=== PATIENT | female | born 1940 | race Asian ===

== ENCOUNTER → 2018-05-28 | Outpatient (CLI) | payer OTHER ==
[~2018-05-28] MED LIST: AMIO200 PO; CALC-1038 PO; VICOT PO
== END | disposition home or self-care (01) ==
LOC: RADPV 08:00
PROVIDERS: ATTEND Hospitalist
DX: I12.9 Hypertensive chronic kidney disease with stage 1 through stage 4 chronic kidney disease, or unspecified chronic kidney disease (principal); N18.3 Chronic kidney disease, stage 3 (moderate)
CPT/HCPCS: 76770

== ENCOUNTER 2019-06-19 05:36 | Inpatient (IN) | payer OTHER ==
[~2019-06-19] VITALS: Ht 149.9 cm; Wt 52.3 kg
[2019-06-19] MEDS ORDERED: DABI75CA3 PO (05:50)
[2019-06-19 07:08] LABS: APPEARANCE,URINE CLEAR (CLEAR); BILIRUBIN,URINE NEGATIVE (NEGATIVE); GLUCOSE, URINE (UA) NEGATIVE (NEGATIVE); KETONES,URINE NEGATIVE (NEGATIVE); LEUKOCYTE ESTERASE ,URINE NEGATIVE (NEGATIVE); NITRATE,URINE NEGATIVE (NEGATIVE); OCCULT BLOOD,URINE SMALL (NEGATIVE); PROTEIN,URINE POS 1+ (NEGATIVE); UROBILINOGEN,URINE 0.2 mg/dL (<=1.0)
[2019-06-19 07:15] LABS: CALCIUM, TOTAL 9.1 mg/dL (8.8-10.5); CREATININE 1.05 mg/dL (0.60-1.30); INR 1.1 (0.9-1.1); POTASSIUM 4.2 mmol/L (3.5-5.1); PROTHROMBIN TIME 10.8 SEC (9.4-11.6)
[2019-06-19 07:26] LABS: BACTERIA,URINE None Seen /HPF (None Seen); SQUAMOUS EPITHELIAL CELL,UR Moderate /LPF (None Seen); WBC,URINE None Seen /HPF (0-5)
[2019-06-19 07:29] LABS: ALBUMIN 3.3 g/dL (3.4-5.0); BILIRUBIN,TOTAL 0.4 mg/dL (0.1-1.0); FREE T4 (FREE THYROXINE) 1.17 ng/dL (0.76-1.46); THYROID STIMULATING HORMONE 4.43 uIU/mL (0.36-3.74); TOTAL PROTEIN, SERUM 7.5 g/dL (6.4-8.2)
[2019-06-19 07:32] LABS: BASOPHILS % (AUTO) 0.8 % (0.0-2.0); EOSINOPHILS % (AUTO) 2.5 % (1.0-6.0); HEMATOCRIT 46.2 % (36-46); HEMOGLOBIN 15.6 g/dL (12.0-16.0); LYMPHOCYTES % (AUTO) 19.8 % (22.0-44.0); MEAN CORPUSCULAR HEMOGLOBIN 30.2 pg (26.0-34.0); MEAN CORPUSCULAR HGB CONC 33.9 G/dL (31.0-37.0); MEAN CORPUSCULAR VOLUME 89 fL (80-100); MONOCYTES # (AUTO) 0.6 K/uL (0.1-1.0); MONOCYTES % (AUTO) 6.3 % (2.0-9.0); NEUTROPHILS # (AUTO) 6.9 K/uL (1.8-7.7); NEUTROPHILS % (AUTO) 70.6 % (40.0-70.0); PLATELET COUNT (AUTO) 305 K/uL (150-450); RED BLOOD CELL COUNT(AUTO) 5.19 MIL/uL (4.00-5.20); RED CELL DISTRIBUTION WIDTH 12.7 % (11.5-14.5)
[2019-06-19] MEDS ORDERED: ACETAMINOPHEN 325 MG TABLET PO PRN ×2 (08:15→09:30)
[2019-06-19] MEDS ORDERED: 0.9% SODIUM CHLORIDE 10 ML SYRINGE IVP PRN ×2 (08:15→09:30)
[2019-06-19] MEDS ORDERED: ASPIRIN 81 MG CHEWABLE TABLET PO ONE (08:15)
[2019-06-19] MEDS ORDERED: ALBUTEROL SULFATE 2.5 MG/0.5 ML NEB SOLUTION NEB PRN (09:30)
[2019-06-19] MEDS ORDERED: IPRATROPIUM BROMIDE 0.5 MG/2.5 ML NEB SOLUTION NEB PRN (09:30)
[2019-06-19] MEDS ORDERED: BISACODYL 10 MG RECTAL RECTAL SUPPOSITORY PR PRN (09:30)
[2019-06-19] MEDS ORDERED: MAGNESIUM HYDROXIDE SUSPENSION 30 ML UDCUP PO PRN (09:30)
[2019-06-19] MEDS ORDERED: ONDANSETRON HCL 4 MG/2 ML VIAL IVP PRN (09:30)
[2019-06-19] MEDS ORDERED: DOCUSATE SODIUM 100 MG CAPSULE PO PRN (09:30)
[2019-06-19] MEDS: PANTOPRAZOLE SODIUM 40 MG DR TABLET PO SCH (10:32)
[2019-06-19 11:34] VITALS: BP 131/63
[2019-06-19] MEDS ORDERED: AMIO200T67 PO (13:32)
[2019-06-19] MEDS: METOPROLOL TARTRATE 25 MG TABLET PO SCH (14:50)
[2019-06-19 15:50] VITALS: BP 119/82
[2019-06-19] MEDS: CALCIUM OYSTER SHELL 500 MG TABLET PO SCH ×2 (17:12→21:48)
[2019-06-19 17:31] VITALS: BP 128/72
[2019-06-19 20:34] VITALS: BP 96/60
[2019-06-19] MEDS: ATORVASTATIN CALCIUM 10 MG TABLET PO SCH (20:56)
[2019-06-19] MEDS: RANOLAZINE 500 MG ER TABLET PO SCH (20:56)
[2019-06-19] MEDS: DABIGATRAN ETEXILATE MESYLATE 75 MG CAPSULE PO SCH (20:56)
[2019-06-19 23:31] VITALS: BP 113/65
[2019-06-20] VITALS (8 sets, daily range): BP systolic 92–120; BP diastolic 58–68
[2019-06-20] MEDS: LEVOTHYROXINE SODIUM 75 MCG TABLET PO SCH (06:00)
[2019-06-20] MEDS: CALCIUM OYSTER SHELL 500 MG TABLET PO SCH ×2 (08:14→20:31)
[2019-06-20] MEDS: RANOLAZINE 500 MG ER TABLET PO SCH ×2 (08:14→20:30)
[2019-06-20] MEDS: PANTOPRAZOLE SODIUM 40 MG DR TABLET PO SCH (08:15)
[2019-06-20] MEDS: DABIGATRAN ETEXILATE MESYLATE 75 MG CAPSULE PO SCH ×2 (08:16→20:30)
[2019-06-20] MEDS: METOPROLOL TARTRATE 25 MG TABLET PO SCH (08:16)
[2019-06-20 08:26] LABS: BASOPHILS % (AUTO) 0.7 % (0.0-2.0); EOSINOPHILS % (AUTO) 5.3 % (1.0-6.0); HEMATOCRIT 45.2 % (36-46); HEMOGLOBIN 15.4 g/dL (12.0-16.0); LYMPHOCYTES # (AUTO) 2.5 K/uL (1.0-4.8); LYMPHOCYTES % (AUTO) 28.4 % (22.0-44.0); MEAN CORPUSCULAR HEMOGLOBIN 30.3 pg (26.0-34.0); MEAN CORPUSCULAR VOLUME 89 fL (80-100); MONOCYTES # (AUTO) 0.6 K/uL (0.1-1.0); MONOCYTES % (AUTO) 6.4 % (2.0-9.0); NEUTROPHILS # (AUTO) 5.1 K/uL (1.8-7.7); NEUTROPHILS % (AUTO) 59.2 % (40.0-70.0); PLATELET COUNT (AUTO) 348 K/uL (150-450); RED BLOOD CELL COUNT(AUTO) 5.08 MIL/uL (4.00-5.20); RED CELL DISTRIBUTION WIDTH 12.5 % (11.5-14.5)
[2019-06-20 08:42] LABS: CREATININE 0.97 mg/dL (0.60-1.30); POTASSIUM 4.1 mmol/L (3.5-5.1)
[2019-06-20 08:43] LABS: CALCIUM, TOTAL 8.7 mg/dL (8.8-10.5); CHOL/HDL RATIO 2.8 (3.9-5.7)
[2019-06-20] MEDS: ATORVASTATIN CALCIUM 10 MG TABLET PO SCH (20:30)
[2019-06-21 05:05] VITALS: BP 102/66
[2019-06-21] MEDS: LEVOTHYROXINE SODIUM 75 MCG TABLET PO SCH (06:08)
[2019-06-21] MEDS: METOPROLOL TARTRATE 25 MG TABLET PO SCH ×2 (09:00→16:09)
[2019-06-21] MEDS: PANTOPRAZOLE SODIUM 40 MG DR TABLET PO SCH (09:33)
[2019-06-21] MEDS: RANOLAZINE 500 MG ER TABLET PO SCH ×2 (09:33→20:03)
[2019-06-21] MEDS: DABIGATRAN ETEXILATE MESYLATE 75 MG CAPSULE PO SCH ×2 (09:34→20:03)
[2019-06-21] MEDS: CALCIUM OYSTER SHELL 500 MG TABLET PO SCH ×2 (09:34→20:03)
[2019-06-21 09:35] VITALS: BP 100/62
[2019-06-21 11:59] VITALS: BP 100/64
[2019-06-21 16:04] VITALS: BP 144/99
[2019-06-21 19:47] VITALS: BP 127/70
[2019-06-21] MEDS: ATORVASTATIN CALCIUM 10 MG TABLET PO SCH (20:03)
[2019-06-22 00:01] VITALS: BP 120/68
[2019-06-22 04:15] VITALS: BP 110/61
[2019-06-22] MEDS: LEVOTHYROXINE SODIUM 75 MCG TABLET PO SCH (05:54)
[2019-06-22 06:58] LABS: BASOPHILS % (AUTO) 0.7 % (0.0-2.0); EOSINOPHILS % (AUTO) 7.2 % (1.0-6.0); HEMATOCRIT 43.5 % (36-46); HEMOGLOBIN 14.8 g/dL (12.0-16.0); LYMPHOCYTES # (AUTO) 2.5 K/uL (1.0-4.8); LYMPHOCYTES % (AUTO) 26.6 % (22.0-44.0); MEAN CORPUSCULAR HEMOGLOBIN 30.3 pg (26.0-34.0); MEAN CORPUSCULAR VOLUME 89 fL (80-100); MONOCYTES # (AUTO) 0.8 K/uL (0.1-1.0); MONOCYTES % (AUTO) 8.4 % (2.0-9.0); NEUTROPHILS # (AUTO) 5.3 K/uL (1.8-7.7); NEUTROPHILS % (AUTO) 57.1 % (40.0-70.0); PLATELET COUNT (AUTO) 353 K/uL (150-450); RED BLOOD CELL COUNT(AUTO) 4.88 MIL/uL (4.00-5.20); RED CELL DISTRIBUTION WIDTH 12.6 % (11.5-14.5)
[2019-06-22 07:46] LABS: CALCIUM, TOTAL 9.3 mg/dL (8.8-10.5); CREATININE 1.04 mg/dL (0.60-1.30); POTASSIUM 4.1 mmol/L (3.5-5.1)
[2019-06-22] MEDS: CALCIUM OYSTER SHELL 500 MG TABLET PO SCH (07:49)
[2019-06-22] MEDS: DABIGATRAN ETEXILATE MESYLATE 75 MG CAPSULE PO SCH (07:49)
[2019-06-22] MEDS: METOPROLOL TARTRATE 25 MG TABLET PO SCH (07:50)
[2019-06-22] MEDS: RANOLAZINE 500 MG ER TABLET PO SCH (07:50)
[2019-06-22] MEDS: PANTOPRAZOLE SODIUM 40 MG DR TABLET PO SCH (07:51)
[2019-06-22 07:55] VITALS: BP 109/62
[2019-06-22 11:32] VITALS: BP 94/58
[2019-06-22] MEDS ORDERED: ATOR10TA84 PO (14:23)
[2019-06-22] MEDS ORDERED: OS500 PO (14:23)
[2019-06-22] MEDS ORDERED: RANO500T3 PO (14:24)
[2019-06-22] MEDS ORDERED: METO25 PO (14:24)
[2019-06-22] MEDS ORDERED: LEVO75 PO (14:24)
[2019-06-22 15:45] VITALS: BP 103/69
== END 2019-06-22 16:20 | disposition home or self-care (01) | DRG 201 ==
LOC: EMS 05:39 → 5S 08:56
PROVIDERS: ADMIT Internal Medicine; ATTEND Internal Medicine
DX: I48.0 Paroxysmal atrial fibrillation (principal); I49.5 Sick sinus syndrome; E78.5 Hyperlipidemia, unspecified; I87.2 Venous insufficiency (chronic) (peripheral); F41.9 Anxiety disorder, unspecified; I47.1 Supraventricular tachycardia; Z95.0 Presence of cardiac pacemaker; Z79.01 Long term (current) use of anticoagulants
CPT/HCPCS: 84439; 84443; 93005; 93306; 97162

== ENCOUNTER 2023-09-02 06:57 | Day surgery (SDC) | payer OTHER ==
[~2023-09-02] VITALS: Ht 149.9 cm; Wt 57.3 kg
[~2023-09-02 06:57] MED LIST changes: -AMIO200 PO; +ATOR10TA PO; +DABI75CA4 PO; +LEVO75 PO; +METO25 PO; +OS500 PO; +RANO500T27 PO; -VICOT PO
[2023-09-02] MEDS ORDERED: SODIUM CHLORIDE 0.9% 0 ML ONE (07:40)
[2023-09-02] MEDS ORDERED: ISON100L PO (08:20)
[2023-09-02] MEDS ORDERED: FAMO20 PO (08:20)
[2023-09-02] MEDS ORDERED: CHOL200059 PO (08:20)
[2023-09-02] MEDS ORDERED: PYRI50TA11 PO (08:20)
[2023-09-02] MEDS ORDERED: BECL10.6 IH (08:21)
[2023-09-02] MEDS: SODIUM CHLORIDE 0.9% 1,000 ML IV ONE (08:27)
[2023-09-02] MEDS ORDERED: MIDAZOLAM HCL 2 MG/2 ML VIAL ONE (08:48)
[2023-09-02] MEDS ORDERED: FentaNYL CITRATE PF 100 MCG/2 ML VIAL ONE (08:48)
[2023-09-02 09:41] VITALS: PULSE 96; RESP 18; O2SAT 100
[2023-09-02] MEDS ORDERED: MethylPREDNISolone SOD SUCC 125 MG/2 ML VIAL ONE (10:50)
[2023-09-02] MEDS: MethylPREDNISolone SOD SUCC 125 MG/2 ML VIAL IVP ONE (10:54)
[2023-09-02] MEDS ORDERED: EPINEPHrine 1:10,000 [1 MG/10 ML] SYRINGE ONE (11:05)
[2023-09-02] MEDS: PROMETHAZINE HCL/CODEINE 6.25-10MG/5ML SOLUTION UDCUP PO PRN (11:08)
[2023-09-02] MEDS ORDERED: LIDOCAINE 4% 50 ML SOLUTION ONE (12:00)
[2023-09-02] MEDS ORDERED: EPINEPHrine 1:1,000 [1 MG/ML] VIAL ONE (12:00)
[2023-09-02] MEDS ORDERED: LEVALBUTEROL 1.25 MG/0.5 ML NEB SOLUTION NEB ONE (12:00)
[2023-09-02] MEDS ORDERED: LIDOCAINE 2% 11 ML JELLY ONE (12:00)
[2023-09-02] MEDS ORDERED: BENZOCAINE 20% 50 MCG/SPRAY 57 GM ONE (12:00)
[2023-09-02] MEDS: PHYTONADIONE 10 MG/ML VIAL PO ONE (13:05)
== END 2023-09-02 13:25 | disposition home or self-care (01) ==
LOC: SURGERY 06:57
PROVIDERS: ATTEND Internal Medicine Critical Care Medicine
DX: R05.3 Chronic cough (principal); R91.8 Other nonspecific abnormal finding of lung field; J81.1 Chronic pulmonary edema; J38.4 Edema of larynx; B37.0 Candidal stomatitis; R06.2 Wheezing; R04.2 Hemoptysis; J98.09 Other diseases of bronchus, not elsewhere classified; J84.10 Pulmonary fibrosis, unspecified; J98.8 Other specified respiratory disorders; Z85.21 Personal history of malignant neoplasm of larynx
CPT/HCPCS: 94640; 87206; 87101; 87220; 87070; 88108; 93005; 31623; 31624; 71045; 87015; J0171 ×2; J3010; J2250; J2919; J3430; Q9967; J7030; Z7610

== ENCOUNTER 2024-03-16 06:41 | Day surgery (SDC) | payer OTHER ==
[~2024-03-16] VITALS: Ht 149.9 cm; Wt 50.9 kg
[~2024-03-16 06:41] MED LIST changes: +BECL10.6 IH; +CHOL200059 PO; +FAMO20 PO; +PYRI50TA11 PO; +[UNRECOGNIZED DRUG - CODE] PO
[2024-03-16] MEDS ORDERED: LEVALBUTEROL 1.25 MG/0.5 ML NEB SOLUTION NEB ONE (06:42)
[2024-03-16] MEDS ORDERED: BENZOCAINE 20% 50 MCG/SPRAY 57 GM TP ONE (06:42)
[2024-03-16] MEDS ORDERED: LIDOCAINE 2% 11 ML JELLY TP ONE (06:42)
[2024-03-16] MEDS ORDERED: LIDOCAINE 4% 50 ML SOLUTION TP ONE (06:42)
[2024-03-16] MEDS ORDERED: ALBUTEROL SULFATE 2.5 MG/0.5 ML NEB SOLUTION NEB ONE (06:42)
[2024-03-16] MEDS ORDERED: LEVO88TA4 PO (07:29)
[2024-03-16] MEDS ORDERED: FLUT12AE3 IH (07:29)
[2024-03-16] MEDS ORDERED: CEFU250T87 PO (07:35)
[2024-03-16] MEDS ORDERED: ALEN70TA65 PO (07:35)
[2024-03-16] MEDS ORDERED: DOXY75CA5 PO (07:35)
[2024-03-16] MEDS ORDERED: METO25XL PO (07:35)
[2024-03-16] MEDS ORDERED: MONT-35 PO (07:35)
[2024-03-16] MEDS ORDERED: FentaNYL CITRATE PF 100 MCG/2 ML VIAL ONE (08:30)
[2024-03-16] MEDS ORDERED: MIDAZOLAM HCL 2 MG/2 ML VIAL ONE (08:30)
[2024-03-16] MEDS: SODIUM CHLORIDE 0.9% 1,000 ML IV ONE (08:36)
[2024-03-16 09:29] VITALS: PULSE 103; RESP 16; O2SAT 100
[2024-03-16] MEDS: FentaNYL CITRATE PF 100 MCG/2 ML VIAL IVP ONE (09:30)
[2024-03-16] MEDS: MIDAZOLAM HCL 2 MG/2 ML VIAL IVP ONE (09:30)
[2024-03-16] MEDS ORDERED: MethylPREDNISolone SOD SUCC 125 MG/2 ML VIAL ONE (10:11)
[2024-03-16] MEDS: PHYTONADIONE 10 MG/ML VIAL PO ONE (10:38)
[2024-03-16] MEDS: MethylPREDNISolone SOD SUCC 125 MG/2 ML VIAL IVP ONE (10:38)
== END 2024-03-16 11:50 | disposition home or self-care (01) ==
LOC: SURGERY 06:41
PROVIDERS: ATTEND Internal Medicine Critical Care Medicine
DX: R05.3 Chronic cough (principal); R06.2 Wheezing; R49.0 Dysphonia; R04.2 Hemoptysis; R91.8 Other nonspecific abnormal finding of lung field; J38.4 Edema of larynx; B37.0 Candidal stomatitis; I10 Essential (primary) hypertension; E11.9 Type 2 diabetes mellitus without complications; Z79.890 Hormone replacement therapy; Z79.899 Other long term (current) drug therapy; Z95.0 Presence of cardiac pacemaker
CPT/HCPCS: 31623; 87206; 87101; 87220; 87070; 88108; 87186; 31624; 94640; 71045; 87015; 93005; J3010; J2250; J2919; J3430; J7613; Z7610

== ENCOUNTER 2025-05-01 01:17 | Inpatient (IN) | payer MEDICARE, OTHER ==
[~2025-05-01] VITALS: Ht 147.3 cm; Wt 48.5 kg
[2025-05-01] VITALS (13 sets, daily range): BP systolic 91–111; BP diastolic 44–52; PULSE 95–214; RESP 20–36; TEMP 93.5–96.3; O2SAT 0–98
[~2025-05-01 01:17] MED LIST changes: +ALEN70TA65 PO; +CEFU250T87 PO; +DOXY75CA5 PO; +FLUT12AE3 IH; +LEVO88TA4 PO; +METO25XL PO; +MONT-35 PO
[2025-05-01] MEDS: ETOMIDATE 2 MG/ML 10 ML VIAL IVP ONE (01:49)
[2025-05-01 02:10] LABS: PLATELET COUNT (AUTO) 301 K/uL (150-450); RED BLOOD CELL COUNT(AUTO) 4.93 MIL/uL (4.00-5.20); RED CELL DISTRIBUTION WIDTH 12.9 % (11.5-14.5)
[2025-05-01 02:30] LABS: ASPARTATE AMINOTRANSFERASE 23.0 U/L (15-37); TOTAL PROTEIN, SERUM 7.6 g/dL (6.4-8.2)
[2025-05-01 02:38] LABS: CALCIUM, TOTAL 8.9 mg/dL (8.8-10.5); CREATININE 1.74 mg/dL (0.60-1.30); GLOMERULAR FILTR. RATE CALC 28 mL/min (>60); GLUCOSE,RANDOM 112 mg/dL (70-110); SODIUM SERUM 132 mmol/L (136-145); TROPONIN I-HIGH SENSITIVITY 35 ng/L (<51); UREA NITROGEN, BLOOD 20 mg/dL (7-18)
[2025-05-01 02:40] LABS: LACTIC ACID 5.8 mmol/L (0.4-2.0); WHITE BLOOD COUNT (AUTO) 69.4 K/uL (4.5-11.0)
[2025-05-01 02:58] LABS: BAND NEUTROPHILS % (MANUAL) 18 % (0-5); LYMPHOCYTES % (MANUAL) 2 % (22-44); MONOCYTES % (MANUAL) 3 % (2-9); RBC MORPHOLOGY COMMENT NORMAL RBC MORPH; SEGMENTED NEUTROPHILS % 77 % (40-70)
[2025-05-01] MEDS: AMIODARONE HCL 150 MG in DEXTROSE 5%-WATER 97 ML IV ONE (03:43)
[2025-05-01 03:50] LABS: ABG BASE EXCESS -17.1 mmol/L (-2.0-3.0); ABG CARBOXYHEMOGLOBIN 0.9 % (0.5-1.5); ABG HCO3 13.5 mmol/L (21.0-28.0); ABG METHEMOGLOBIN 0.7 % (0.0-1.5); ABG OXYGEN CONTENT 18.8 mL/dL (15.0-23.0); ABG OXYGEN SATURATION 85.7 % (94.0-98.0); ABG OXYHEMOGLOBIN 84.3 % (94.0-98.0); ABG PH 7.314 (7.350-7.450); ABG TOTAL HEMOGLOBIN 15.9 G/dL (12.0-16.0); FRACTIONATED INSPIRED OXYGEN 100.0 % (21-100.0); SOURCE, BLOOD GAS ARTERIAL; TEMPERATURE, FAHRENHEIT, BG 97.4 FAHREN (96.0-98.6)
[2025-05-01 03:54] LABS: ABG PCO2 18 mmHg (32.0-45.0); PO2, ARTERIAL BG 52.4 mmHg (83.0-108.0)
[2025-05-01 03:55] LABS: ABG A-A DIFF O2 644.0 mmHg (10-20.0); FLOW, BLOOD GAS 15.00 L/min (0.00-15.00); O2 DEVICE,BLOOD GAS NON REBREATHER (ROOM AIR); SITE, BLOOD GAS RT FEMORAL
[2025-05-01 03:56] LABS: PATIENT RATE, BG 36.0 min.
[2025-05-01] MEDS: MAGNESIUM SULFATE 1 GM in DEXTROSE 5%-WATER 50 ML IV ONE (04:03)
[2025-05-01] MEDS: AMIODARONE HCL 360 MG in DEXTROSE 5%-WATER 242.8 ML IV ONE (04:14)
[2025-05-01] MEDS: CefTRIAXone 1 GM/DEXTROSE 50 ML IV ONE (05:41)
[2025-05-01 05:54] LABS: ABG BASE EXCESS -19.2 mmol/L (-2.0-3.0); ABG CARBOXYHEMOGLOBIN 0.8 % (0.5-1.5); ABG HCO3 12.0 mmol/L (21.0-28.0); ABG METHEMOGLOBIN 0.8 % (0.0-1.5); ABG OXYGEN CONTENT 18.2 mL/dL (15.0-23.0); ABG OXYGEN SATURATION 86.1 % (94.0-98.0); ABG OXYHEMOGLOBIN 84.7 % (94.0-98.0); ABG PH 7.254 (7.350-7.450); ABG TOTAL HEMOGLOBIN 15.3 G/dL (12.0-16.0); FRACTIONATED INSPIRED OXYGEN 91.0 % (21-100.0); PO2, ARTERIAL BG 55.1 mmHg (83.0-108.0); SOURCE, BLOOD GAS ARTERIAL; TEMPERATURE, FAHRENHEIT, BG 97.2 FAHREN (96.0-98.6)
[2025-05-01 05:56] LABS: ABG PCO2 19 mmHg (32.0-45.0)
[2025-05-01 05:57] LABS: ABG A-A DIFF O2 576.5 mmHg (10-20.0); ALLEN TEST, BLOOD GAS Positive; O2 DEVICE,BLOOD GAS HI FL CANNULA (ROOM AIR); SITE, BLOOD GAS RT FEMORAL
[2025-05-01 05:58] LABS: FLOW, BLOOD GAS 55.00 L/min (0.00-15.00); PATIENT RATE, BG 30.0 min.
[2025-05-01] MEDS: SODIUM BICARBONATE [ADULT] 8.4% 50 MEQ/50 ML SYRINGE IVP ONE (06:09)
[2025-05-01] MEDS: KETAMINE HCL 50 MG/ML 10 ML VIAL IVP ONE (06:10)
[2025-05-01] MEDS: ROCURONIUM BROMIDE 10 MG/ML 5 ML VIAL IVP ONE (06:11)
[2025-05-01] MEDS ORDERED: EPINEPHrine 1:10,000 [1 MG/10 ML] SYRINGE ONE (06:14)
[2025-05-01] MEDS: VASOPRESSIN 40 UNITS in DEXTROSE 5%-WATER 98 ML IV PRN ×2 (06:28→07:55)
[2025-05-01] MEDS ORDERED: 0.9% SODIUM CHLORIDE 10 ML SYRINGE IVP PRN (06:30)
[2025-05-01] MEDS: *CLINICAL-CEFEPIME DOSING CLINICAL ONE (06:40)
[2025-05-01] MEDS: ALBUMIN HUMAN 5%-12.5GM/250ML 250 ML IV ONE (07:07)
[2025-05-01 07:08] LABS: PLATELET COUNT (AUTO) 284 K/uL (150-450); RED BLOOD CELL COUNT(AUTO) 4.44 MIL/uL (4.00-5.20); RED CELL DISTRIBUTION WIDTH 13.2 % (11.5-14.5)
[2025-05-01 07:17] LABS: WHITE BLOOD COUNT (AUTO) 66.2 K/uL (4.5-11.0)
[2025-05-01 07:18] LABS: CALCIUM, TOTAL 8.0 mg/dL (8.8-10.5); CREATININE 2.09 mg/dL (0.60-1.30); GLOMERULAR FILTR. RATE CALC 23.0 mL/min (>60); GLUCOSE,RANDOM 322.0 mg/dL (70-110); SODIUM SERUM 133.0 mmol/L (136-145); UREA NITROGEN, BLOOD 22.0 mg/dL (7-18)
[2025-05-01 07:23] LABS: ASPARTATE AMINOTRANSFERASE 88.0 U/L (15-37); LACTATE DEHYDROGENASE 361.0 U/L (81-234); TOTAL PROTEIN, SERUM 6.3 g/dL (6.4-8.2)
[2025-05-01] MEDS ORDERED: PROPOFOL 1000 MG/ISO-OSM 100 ML IV PRN (07:30)
[2025-05-01] MEDS: EPINEPHrine 1:10,000 [1 MG/10 ML] SYRINGE IVP ONE (07:40)
[2025-05-01] MEDS: SODIUM CHLORIDE 0.9% 250 ML IV ONE (07:46)
[2025-05-01] MEDS: FentaNYL CIT 1000MCG/0.9% NACL 100 ML IV PRN (08:01)
[2025-05-01 08:43] LABS: COVID AG,FIA SOURCE NASAL SWAB
[2025-05-01] MEDS: SODIUM BICARBONATE 100 MEQ in DEXTROSE 5%-0.45% SODIUM CHL 1,000 ML IV SCH (08:52)
[2025-05-01 09:14] LABS: SARS-COV2 (COVID) ANTIGEN,FIA Negative (Negative)
[2025-05-01 09:15] LABS: INFLUENZA TYPE A NEGATIVE FOR TYPE A (NEGATIVE); INFLUENZA TYPE B NEGATIVE FOR TYPE B (NEGATIVE)
[2025-05-01 09:15] LABS: BAND NEUTROPHILS % (MANUAL) 20 % (0-5); LYMPHOCYTES % (MANUAL) 3 % (22-44); MONOCYTES % (MANUAL) 6 % (2-9); SEGMENTED NEUTROPHILS % 71 % (40-70)
[2025-05-01] MEDS ORDERED: DEXTROSE 50%-WATER 25 GM/50 ML SYRINGE IVP PRN (09:30)
[2025-05-01 10:16] LABS: RAPID GROUP A STREP PRELIM. NEGATIVE (NEGATIVE)
[2025-05-01] MEDS: VANCOMYCIN 750 MG/WATER(PEG) 150 ML IV ONE (10:31)
[2025-05-01] MEDS: AMIODARONE HCL 540 MG in DEXTROSE 5%-WATER 250 ML IV ONE (10:32)
[2025-05-01] MEDS: SODIUM CHLORIDE 0.9% 1,000 ML IV ONE ×2 (10:45→11:00)
[2025-05-01] MEDS ORDERED: SODIUM CHLORIDE 0.9% 500 ML IV ONE (13:37)
[2025-05-01] MEDS ORDERED: CEFEPIME HCL 0.5 GM in DEXTROSE 5%-WATER 50 ML IV SCH (14:00)
[2025-05-01] MEDS ORDERED: SODIUM CHLORIDE 0.9% 250 ML IV ONE ×2 (14:09→17:52)
[2025-05-01 15:04] LABS: ABG CARBOXYHEMOGLOBIN 0.2 % (0.5-1.5); FRACTIONATED INSPIRED OXYGEN 100.0 % (21-100.0); SOURCE, BLOOD GAS ARTERIAL
[2025-05-01 15:14] LABS: CALCIUM, TOTAL 6.6 mg/dL (8.8-10.5); CREATININE 1.75 mg/dL (0.60-1.30); GLOMERULAR FILTR. RATE CALC 28.0 mL/min (>60); GLUCOSE,RANDOM 336.0 mg/dL (70-110); SODIUM SERUM 135.0 mmol/L (136-145); UREA NITROGEN, BLOOD 23.0 mg/dL (7-18)
[2025-05-01 15:17] LABS: ABG BASE EXCESS -14.0 mmol/L (-2.0-3.0); ABG HCO3 13.6 mmol/L (21.0-28.0); ABG METHEMOGLOBIN 0.1 % (0.0-1.5); ABG OXYGEN CONTENT 15.7 mL/dL (15.0-23.0); ABG OXYHEMOGLOBIN 84.4 % (94.0-98.0); ABG PCO2 45 mmHg (32.0-45.0); ABG TOTAL HEMOGLOBIN 13.2 G/dL (12.0-16.0); TEMPERATURE, FAHRENHEIT, BG 92.1 FAHREN (96.0-98.6)
[2025-05-01 15:18] LABS: ABG OXYGEN SATURATION 84.7 % (94.0-98.0); ABG PH 7.141 (7.350-7.450); PO2, ARTERIAL BG 50.1 mmHg (83.0-108.0)
[2025-05-01 15:19] LABS: ABG A-A DIFF O2 626.5 mmHg (10-20.0); O2 DEVICE,BLOOD GAS VENTILATOR (ROOM AIR); PEEP,BG 5 cm H2O; SET RATE, BG 20.0 min.; SITE, BLOOD GAS ARTERIAL LINE; VT, ABG 300 ml
[2025-05-01] MEDS: EPINEPHrine 5 MG in DEXTROSE 5%-WATER 245 ML IV PRN (15:19)
[2025-05-01] MEDS: DOPamine 400MG/D5W[STANDARD] 250 ML IV PRN (15:30)
[2025-05-01] MEDS: CEFEPIME HCL 1 GM in DEXTROSE 5%-WATER 50 ML IV SCH (16:16)
[2025-05-01] MEDS: RINGERS SOLUTION,LACTATED 500 ML IV ONE ×2 (16:17→16:19)
[2025-05-01] MEDS: ALBUMIN HUMAN 25%-25GM/100ML 100 ML IV SCH (16:18)
[2025-05-01 16:33] LABS: ABG BASE EXCESS -12.3 mmol/L (-2.0-3.0); ABG CARBOXYHEMOGLOBIN 0.1 % (0.5-1.5); ABG HCO3 15.0 mmol/L (21.0-28.0); ABG METHEMOGLOBIN 0.3 % (0.0-1.5); ABG OXYGEN CONTENT 16.4 mL/dL (15.0-23.0); ABG OXYGEN SATURATION 92.0 % (94.0-98.0); ABG OXYHEMOGLOBIN 91.6 % (94.0-98.0); ABG PCO2 47 mmHg (32.0-45.0); ABG TOTAL HEMOGLOBIN 12.7 G/dL (12.0-16.0); FRACTIONATED INSPIRED OXYGEN 100.0 % (21-100.0); PO2, ARTERIAL BG 75.0 mmHg (83.0-108.0); SOURCE, BLOOD GAS ARTERIAL; TEMPERATURE, FAHRENHEIT, BG 98.0 FAHREN (96.0-98.6)
[2025-05-01 16:34] LABS: ABG A-A DIFF O2 592.2 mmHg (10-20.0); ABG PH 7.162 (7.350-7.450); O2 DEVICE,BLOOD GAS VENTILATOR (ROOM AIR); PEEP,BG 10 cm H2O; SET RATE, BG 26.0 min.; SITE, BLOOD GAS ARTERIAL LINE; VT, ABG 300 ml
[2025-05-01] MEDS: POTASSIUM CHL 10 MEQ/WATER 50 ML IV ONE ×2 (17:42→19:44)
[2025-05-01] MEDS: DOXYCYCLINE HYCLATE 100 MG in DEXTROSE 5%-WATER 100 ML IV SCH (17:43)
[2025-05-01] MEDS: MetroNIDAZOLE 500 MG/NACL 100 ML IV SCH (17:54)
[2025-05-01] MEDS ORDERED: HEPARIN SODIUM,PORCINE 1,000 UNITS/ML VIAL IVCATH PRN ×2 (18:45)
[2025-05-01 18:56] LABS: GLUCOMETER DEV NAME(LOC) ICUN.7; GLUCOSE,POINT OF CARE 311 MG/DL (70-110)
[2025-05-01] MEDS: INSULIN LISPRO 100 UNITS/ML SQ PRN (18:56)
[2025-05-01 20:40] LABS: CALCIUM, TOTAL 6.3 mg/dL (8.8-10.5); CREATININE 1.58 mg/dL (0.60-1.30); GLOMERULAR FILTR. RATE CALC 31.0 mL/min (>60); SODIUM SERUM 131.0 mmol/L (136-145); UREA NITROGEN, BLOOD 21.0 mg/dL (7-18)
[2025-05-01 20:44] LABS: GLUCOSE,RANDOM 475.0 mg/dL (70-110)
[2025-05-01 20:49] LABS: PHOSPHORUS 3.5 mg/dL (2.5-4.9); TOTAL PROTEIN, SERUM 5.6 g/dL (6.4-8.2)
[2025-05-01 20:50] LABS: ASPARTATE AMINOTRANSFERASE 1670.0 U/L (15-37)
[2025-05-02] VITALS (13 sets, daily range): BP systolic 88–144; BP diastolic 40–51; PULSE 86–142; RESP 26–29; TEMP 97.4–100; O2SAT 0–76
[2025-05-02] MEDS: SODIUM CHLORIDE 0.9% 1,000 ML IV SCH (00:30)
[2025-05-02 01:31] LABS: GLUCOMETER DEV NAME(LOC) ICU.S7; GLUCOSE,POINT OF CARE 329 MG/DL (70-110)
[2025-05-02 03:43] LABS: ABG BASE EXCESS -15.9 mmol/L (-2.0-3.0); ABG CARBOXYHEMOGLOBIN 0.3 % (0.5-1.5); ABG HCO3 12.7 mmol/L (21.0-28.0); ABG METHEMOGLOBIN 0.3 % (0.0-1.5); ABG OXYGEN CONTENT 13.7 mL/dL (15.0-23.0); ABG OXYGEN SATURATION 87.9 % (94.0-98.0); ABG OXYHEMOGLOBIN 87.4 % (94.0-98.0); ABG PCO2 39 mmHg (32.0-45.0); ABG TOTAL HEMOGLOBIN 11.1 G/dL (12.0-16.0); FRACTIONATED INSPIRED OXYGEN 100.0 % (21-100.0); PO2, ARTERIAL BG 59.9 mmHg (83.0-108.0); TEMPERATURE, FAHRENHEIT, BG 97.1 FAHREN (96.0-98.6)
[2025-05-02 03:44] LABS: ABG PH 7.145 (7.350-7.450)
[2025-05-02 03:45] LABS: FLOW, BLOOD GAS 40.00 L/min (0.00-15.00); O2 DEVICE,BLOOD GAS VENTILATOR (ROOM AIR); SITE, BLOOD GAS RT RADIAL; SOURCE, BLOOD GAS ARTERIAL LINE
[2025-05-02 03:46] LABS: VENT MODE, BG PC (ROOM AIR)
[2025-05-02 03:48] LABS: PATIENT RATE, BG 26.0 min.; SET RATE, BG 347.0 min.; VT, ABG 347 ml
[2025-05-02 03:49] LABS: INSIPIRATORY PRESSURE, BG 18 cm H2O; PEEP,BG 5 cm H2O
[2025-05-02] MEDS: AMIODARONE HCL 750 MG in DEXTROSE 5%-WATER 485 ML IV SCH (04:49)
[2025-05-02] MEDS: SODIUM BICARBONATE [ADULT] 8.4% 50 MEQ/50 ML SYRINGE IVP ONE (04:49)
[2025-05-02 06:30] LABS: GLUCOMETER DEV NAME(LOC) ICUN.7; GLUCOSE,POINT OF CARE 492 MG/DL (70-110)
[2025-05-02] MEDS: LEVOTHYROXINE SODIUM 88 MCG TABLET GT SCH (06:31)
[2025-05-02 06:38] LABS: PLATELET COUNT (AUTO) 186 K/uL (150-450); RED BLOOD CELL COUNT(AUTO) 3.28 MIL/uL (4.00-5.20); RED CELL DISTRIBUTION WIDTH 13.4 % (11.5-14.5)
[2025-05-02 06:54] LABS: WHITE BLOOD COUNT (AUTO) 57.5 K/uL (4.5-11.0)
[2025-05-02 06:59] LABS: CREATININE 1.81 mg/dL (0.60-1.30); GLOMERULAR FILTR. RATE CALC 27.0 mL/min (>60); SODIUM SERUM 131.0 mmol/L (136-145); UREA NITROGEN, BLOOD 21.0 mg/dL (7-18)
[2025-05-02 07:01] LABS: CALCIUM, TOTAL 5.9 mg/dL (8.8-10.5); GLUCOSE,RANDOM 490.0 mg/dL (70-110)
[2025-05-02 07:11] LABS: APPEARANCE,URINE HAZY (CLEAR); GLUCOSE, URINE (UA) >=1000 mg/dL (NEGATIVE); LEUKOCYTE ESTERASE ,URINE NEGATIVE (NEGATIVE); NITRATE,URINE NEGATIVE (NEGATIVE); OCCULT BLOOD,URINE MODERATE (NEGATIVE); SPECIFIC GRAVITIY, URINE 1.022 (1.003-1.030)
[2025-05-02 07:16] LABS: TROPONIN I-HIGH SENSITIVITY 69 ng/L (<51)
[2025-05-02 07:29] LABS: SQUAMOUS EPITHELIAL CELL,UR Few /LPF (None Seen)
[2025-05-02] MEDS: PYRIDOXINE HCL 50 MG TABLET GT SCH (07:44)
[2025-05-02] MEDS: VANCOMYCIN 500 MG/WATER(PEG) 100 ML IV SCH (07:44)
[2025-05-02 08:03] LABS: BAND NEUTROPHILS % (MANUAL) 22 % (0-5); LYMPHOCYTES % (MANUAL) 3 % (22-44); MONOCYTES % (MANUAL) 6 % (2-9); SEGMENTED NEUTROPHILS % 69 % (40-70)
[2025-05-02 08:14] LABS: INFLUENZA A-RTPCR,COMBO NEGATIVE (NEGATIVE); INFLUENZA B-RTPCR,COMBO NEGATIVE (NEGATIVE); RESPIRATORY SYNCYTIAL VRS-PCR NEGATIVE (NEGATIVE); SARS COVID19 RTPCR, COMBO NEGATIVE (NEGATIVE)
[2025-05-02] MEDS: ISONIAZID 300 MG TABLET GT SCH (08:24)
[2025-05-02] MEDS: DEXTROSE 5%-WATER 1,000 ML IV SCH (09:30)
[2025-05-02] MEDS ORDERED: DEXTROSE 50%-WATER 25 GM/50 ML SYRINGE IVP PRN (09:30)
[2025-05-02 09:49] LABS: ABG BASE EXCESS -9.9 mmol/L (-2.0-3.0); ABG CARBOXYHEMOGLOBIN 0.1 % (0.5-1.5); ABG HCO3 16.3 mmol/L (21.0-28.0); ABG METHEMOGLOBIN 0.3 % (0.0-1.5); ABG OXYGEN CONTENT 12.0 mL/dL (15.0-23.0); ABG OXYHEMOGLOBIN 78.5 % (94.0-98.0); ABG PCO2 54 mmHg (32.0-45.0); ABG TOTAL HEMOGLOBIN 10.9 G/dL (12.0-16.0); FRACTIONATED INSPIRED OXYGEN 100.0 % (21-100.0); SOURCE, BLOOD GAS ARTERIAL; TEMPERATURE, FAHRENHEIT, BG 99.4 FAHREN (96.0-98.6)
[2025-05-02 09:50] LABS: ABG A-A DIFF O2 608.0 mmHg (10-20.0); ABG OXYGEN SATURATION 78.8 % (94.0-98.0); ABG PH 7.158 (7.350-7.450); O2 DEVICE,BLOOD GAS VENTILATOR (ROOM AIR); PO2, ARTERIAL BG 49.9 mmHg (83.0-108.0); SITE, BLOOD GAS ARTERIAL LINE; VENT MODE, BG Press. Control Vent (ROOM AIR); VT, ABG 324 ml
[2025-05-02 09:51] LABS: INSIPIRATORY PRESSURE, BG 18 cm H2O; PATIENT RATE, BG 26.0 min.; PEEP,BG 5 cm H2O; SET RATE, BG 26.0 min.; SPONTANEOUS VT, BG 324 ml
[2025-05-02] MEDS: CALCIUM GLUCONATE 100 MG/ML 10 ML IVP ONE (10:03)
[2025-05-02] MEDS: POTASSIUM CHL 10 MEQ/WATER 50 ML IV ONE (10:03)
[2025-05-02] MEDS: CEFEPIME HCL 1 GM in DEXTROSE 5%-WATER 50 ML IV SCH (10:36)
[2025-05-02] MEDS: INSULIN REGULAR, HUMAN 100 UNITS in SODIUM CHLORIDE 0.9% 99 ML IV PRN (10:39)
[2025-05-02 11:16] LABS: GLUCOMETER DEV NAME(LOC) ICUN.7; GLUCOSE,POINT OF CARE 334 MG/DL (70-110)
[2025-05-02 11:16] LABS: GLUCOMETER DEV NAME(LOC) ICUN.7; GLUCOSE,POINT OF CARE 381 MG/DL (70-110)
[2025-05-02 11:29] LABS: ABG BASE EXCESS -11.5 mmol/L (-2.0-3.0); ABG CARBOXYHEMOGLOBIN 0.3 % (0.5-1.5); ABG HCO3 15.3 mmol/L (21.0-28.0); ABG METHEMOGLOBIN 0.3 % (0.0-1.5); ABG OXYGEN CONTENT 12.7 mL/dL (15.0-23.0); ABG OXYGEN SATURATION 82.4 % (94.0-98.0); ABG OXYHEMOGLOBIN 81.9 % (94.0-98.0); ABG PCO2 50 mmHg (32.0-45.0); ABG PH 7.157 (7.350-7.450); ABG TOTAL HEMOGLOBIN 11.0 G/dL (12.0-16.0); FRACTIONATED INSPIRED OXYGEN 100.0 % (21-100.0); PO2, ARTERIAL BG 51.3 mmHg (83.0-108.0); SITE, BLOOD GAS ARTERIAL LINE; SOURCE, BLOOD GAS ARTERIAL; TEMPERATURE, FAHRENHEIT, BG 97.9 FAHREN (96.0-98.6)
[2025-05-02 11:30] LABS: ABG A-A DIFF O2 613.0 mmHg (10-20.0); INSIPIRATORY PRESSURE, BG 18 cm H2O; O2 DEVICE,BLOOD GAS VENTILATOR (ROOM AIR); PEEP,BG 8 cm H2O; SET RATE, BG 26.0 min.; SPONTANEOUS VT, BG 342 ml; VENT MODE, BG Press. Control Vent (ROOM AIR); VT, ABG 342 ml
[2025-05-02 12:20] LABS: GLUCOMETER DEV NAME(LOC) ICUN.7; GLUCOSE,POINT OF CARE 306 MG/DL (70-110)
[2025-05-02] MEDS: *CLINICAL-MEROPENEM DOSING CLINICAL ONE (13:11)
[2025-05-02] MEDS: MEROPENEM 500 MG in SODIUM CHLORIDE 0.9% 50 ML IV SCH (14:12)
[2025-05-02 14:16] LABS: GLUCOMETER DEV NAME(LOC) ICU.S7; GLUCOSE,POINT OF CARE 192 MG/DL (70-110)
[2025-05-02 14:16] LABS: GLUCOMETER DEV NAME(LOC) ICU.S7; GLUCOSE,POINT OF CARE 206 MG/DL (70-110)
[2025-05-02 16:20] LABS: GLUCOMETER DEV NAME(LOC) ICU.S7; GLUCOSE,POINT OF CARE 142 MG/DL (70-110)
[2025-05-02 17:31] LABS: GLUCOMETER DEV NAME(LOC) ICUN.7; GLUCOSE,POINT OF CARE 158 MG/DL (70-110)
[2025-05-02] MEDS ORDERED: SODIUM CHLORIDE 0.9% 250 ML IV ONE (20:03)
[2025-05-02 21:05] LABS: GLUCOMETER DEV NAME(LOC) ICUN.7; GLUCOSE,POINT OF CARE 94 MG/DL (70-110)
[2025-05-02 21:05] LABS: GLUCOMETER DEV NAME(LOC) ICUN.7; GLUCOSE,POINT OF CARE 115 MG/DL (70-110)
[2025-05-03] VITALS (10 sets, daily range): BP systolic 50–117; BP diastolic 35–46; PULSE 70–120; RESP 26–28; TEMP 95.8–98.4; O2SAT 49–79
[2025-05-03 00:01] LABS: GLUCOMETER DEV NAME(LOC) ICUN.7; GLUCOSE,POINT OF CARE 96 MG/DL (70-110)
[2025-05-03 04:01] LABS: GLUCOMETER DEV NAME(LOC) ICU.S7; GLUCOSE,POINT OF CARE 92 MG/DL (70-110)
[2025-05-03] MEDS: LEVOTHYROXINE SODIUM 112 MCG TABLET PO SCH (05:38)
[2025-05-03 06:11] LABS: PLATELET COUNT (AUTO) 139 K/uL (150-450); RED BLOOD CELL COUNT(AUTO) 2.83 MIL/uL (4.00-5.20); RED CELL DISTRIBUTION WIDTH 13.1 % (11.5-14.5)
[2025-05-03 06:32] LABS: ASPARTATE AMINOTRANSFERASE 273.0 U/L (15-37); CREATININE 1.86 mg/dL (0.60-1.30); GLOMERULAR FILTR. RATE CALC 26.0 mL/min (>60); GLUCOSE,RANDOM 197.0 mg/dL (70-110); TOTAL PROTEIN, SERUM 4.9 g/dL (6.4-8.2); UREA NITROGEN, BLOOD 23.0 mg/dL (7-18)
[2025-05-03 06:40] LABS: WHITE BLOOD COUNT (AUTO) 47.2 K/uL (4.5-11.0)
[2025-05-03 06:45] LABS: SODIUM SERUM 123.0 mmol/L (136-145)
[2025-05-03 06:46] LABS: CALCIUM, TOTAL 5.2 mg/dL (8.8-10.5)
[2025-05-03 07:08] LABS: BAND NEUTROPHILS % (MANUAL) 23 % (0-5); LYMPHOCYTES % (MANUAL) 4 % (22-44); MONOCYTES % (MANUAL) 6 % (2-9); SEGMENTED NEUTROPHILS % 67 % (40-70)
[2025-05-03] MEDS: CALCIUM GLUCONATE 100 MG/ML 10 ML IVP ONE (09:35)
[2025-05-03] MEDS: CALCIUM GLUCONATE 1,000 MG in DEXTROSE 5%-WATER 50 ML IV ONE (09:42)
[2025-05-03] MEDS: VASOPRESSIN 40 UNITS in SODIUM CHLORIDE 0.9% 98 ML IV PRN (11:40)
[2025-05-03] MEDS: DOPamine 800MG/D5W[DOUBLE] 250 ML IV PRN (11:41)
[2025-05-03 13:17] LABS: ASPARTATE AMINOTRANSFERASE 240.0 U/L (15-37); CREATININE 1.97 mg/dL (0.60-1.30); GLOMERULAR FILTR. RATE CALC 24.0 mL/min (>60); GLUCOSE,RANDOM 234.0 mg/dL (70-110); TOTAL PROTEIN, SERUM 4.2 g/dL (6.4-8.2); UREA NITROGEN, BLOOD 23.0 mg/dL (7-18)
[2025-05-03 13:25] LABS: SODIUM SERUM 117.0 mmol/L (136-145)
[2025-05-03 13:26] LABS: CALCIUM, TOTAL 5.4 mg/dL (8.8-10.5)
[2025-05-03] MEDS: HYDROCORTISONE SOD SUCC 100 MG/2 ML VIAL IVP ONE (13:36)
[2025-05-03] MEDS: LEVOTHYROXINE SODIUM 100 MCG VIAL IVP ONE (13:37)
[2025-05-03] MEDS: SODIUM CHLORIDE 3% 500 ML IV SCH (14:11)
[2025-05-03] MEDS: CefTRIAXone SODIUM 2 GM in DEXTROSE 5%-WATER 50 ML IV SCH (14:11)
[2025-05-03 15:11] LABS: GLUCOMETER DEV NAME(LOC) ICU.S7; GLUCOSE,POINT OF CARE 256 MG/DL (70-110)
[2025-05-03] MEDS: HYDROCORTISONE SOD SUCC 250 MG/2 ML VIAL IVP SCH (18:00)
[2025-05-05 12:07] LABS: LEGIONELLA PNEUMO AG URINE Negative (Negative); S PNEUMO SOURCE Urine; STREP PNEUMONIAE AG URINE Negative (Negative)
== END 2025-05-03 17:10 | DRG 871 ==
LOC: EMS 01:17 → EDH 06:47 → ICU 10:00
PROVIDERS: ADMIT Internal Medicine; ATTEND Internal Medicine
PROC: 5A1945Z Respiratory Ventilation, 24-96 Consecutive Hours (ICD-10-PCS; principal; 2025-05-01)
PROC: 0BH17EZ Insertion of Endotracheal Airway into Trachea, Via Natural or Artificial Opening (ICD-10-PCS; 2025-05-01)
PROC: 5A0935A Assistance with Respiratory Ventilation, Less than 24 Consecutive Hours, High Flow/Velocity Cannula (ICD-10-PCS; 2025-05-01)
PROC: 02HV33Z Insertion of Infusion Device into Superior Vena Cava, Percutaneous Approach (ICD-10-PCS; 2025-05-01)
PROC: B548ZZA Ultrasonography of Superior Vena Cava, Guidance (ICD-10-PCS; 2025-05-01)
DX: A41.59 Other Gram-negative sepsis (principal); D65 Disseminated intravascular coagulation [defibrination syndrome]; J18.9 Pneumonia, unspecified organism; J96.21 Acute and chronic respiratory failure with hypoxia; N17.0 Acute kidney failure with tubular necrosis; R65.21 Severe sepsis with septic shock; J44.0 Chronic obstructive pulmonary disease with (acute) lower respiratory infection; J91.8 Pleural effusion in other conditions classified elsewhere; B96.1 Klebsiella pneumoniae [K. pneumoniae] as the cause of diseases classified elsewhere; E03.9 Hypothyroidism, unspecified; N18.31 Chronic kidney disease, stage 3a; I13.10 Hypertensive heart and chronic kidney disease without heart failure, with stage 1 through stage 4 chronic kidney disease, or unspecified chronic kidney disease; I07.1 Rheumatic tricuspid insufficiency; E87.21 Acute metabolic acidosis; I47.10 Supraventricular tachycardia, unspecified; E87.1 Hypo-osmolality and hyponatremia; Z85.118 Personal history of other malignant neoplasm of bronchus and lung; I49.5 Sick sinus syndrome; Z66 Do not resuscitate; Z20.822 Contact with and (suspected) exposure to COVID-19; E78.5 Hyperlipidemia, unspecified; I48.91 Unspecified atrial fibrillation; M81.0 Age-related osteoporosis without current pathological fracture; T45.1X5A Adverse effect of antineoplastic and immunosuppressive drugs, initial encounter; F41.9 Anxiety disorder, unspecified; Y92.89 Other specified places as the place of occurrence of the external cause; Z79.83 Long term (current) use of bisphosphonates; Z95.0 Presence of cardiac pacemaker
CPT/HCPCS: 31500; 71045; 71250; 72192; 74150; 80048; 80053; 80076; 81001; 82805; 82962; 83605; 83615; 83735; 83880; 84100; 84145; 84439; 84443; 84484; 84550; 85025; 85610; 85730; 87040; 87070; 87077; 87081; 87186; 87205; 87430; 87449; 87637; 87804; 87899; 93005; 93306; 94002; 96365; 96375; 99291; 99292; G0238; J0169; J0282; J0610; J0692; J0696; J1265; J1720; J1815; J2185; J2370; J3010; J3475; J3480; J3490; J7030; J7040; J7050; J7060; J7120; P9041; P9046; 36415-L1; 36415-TC